=== PATIENT | female | born 1995 | race Caucasian/White ===

== ENCOUNTER 2018-03-30 21:06 | Emergency (ER) | payer SELFPAY ==
[2018-03-30] MEDS ORDERED: LET GEL TOPICAL 1 EA SYR TP ONE ×2 (21:33→21:37)
[2018-03-30] MEDS ORDERED: SKIN ADHESIVE (DERMABOND) 1 EACH TP ONE (21:33)
--- NOTE | 2018-03-30 22:45 | EDPHY ---
H & P Stated Complaint: Lac to L thumb slicing onions. Time Seen by Provider: 03/30/18 21:11 HPI/ROS: 22-year-old female presents complaining of laceration to her left thumb while slicing onions. Review of systems As per HPI General no fever no chills no weakness HEENT no eye pain no eye discharge. No eye redness, no sore throat Respiratory no cough, no shortness of breath Cardiac no chest pain, no peripheral edema GI no abdominal pain, no diarrhea, no constipation, no nausea, no vomiting no flank pain, no hematuria, no dysuria Musculoskeletal no myalgias, no joint pain Heme no easy bruising, no easy bleeding Endo no polyuria, no polydipsia Skin no rashes, no pruritus Neuro no syncope, no dizziness, no headaches Psych is no suicidal ideation, no homicidal ideation Source: Patient Exam Limitations: No limitations - Personal History LMP (Females 10-55): IUD In Place Current Tetanus/Diphtheria Vaccine: Yes Current Tetanus Diphtheria and Acellular Pertussis (TDAP): Yes Tetanus Vaccine Date: 2017 - Medical/Surgical History Hx Asthma: No Hx Chronic Respiratory Disease: No Hx Diabetes: No Hx Cardiac Disease: No Hx Renal Disease: No Hx Cirrhosis: No Hx Alcoholism: No Hx HIV/AIDS: No Hx Splenectomy or Spleen Trauma: No Other PMH: Headaches, IUD in place. - Family History Significant Family History: No pertinent family hx - Social History Smoking Status: Never smoked Alcohol Use: None Drug Use: None - Physical Exam Exam: 22 yo F alert and oriented in nad non toxic appearance at,nc neck no jvd no resp distress heart rrr ext left hand good cap refill, no swelling, no redness, no ecchymoses, FROM left thumb with 1 cm laceration volar surface at PIP non gaping, no FB, from Constitutional: Initial Vital Signs Temperature (C) 36.6 C 03/30/18 21:13 Heart Rate 76 03/30/18 21:13 Respiratory Rate 16 03/30/18 21:13 Blood Pressure 131/88 H 03/30/18 21:13 O2 Sat (%) 97 03/30/18 21:13 O2 Delivery Mode Room Air Allergies/Adverse Reactions: No Known Allergies Allergy (Unverified 09/21/15 19:26) Home Medications: Medication Instructions Recorded NK [No Known Home Meds] 03/30/18 Medical Decision Making Procedures: Procedure note-laceration LET applied for 20 minutes. the wound was then cleaned by the tech 1 cm laceration to left thumb, non gaping applied dermabond splinted Patient tolerated procedure well. ED Course/Re-evaluation: Patient seen and evaluated for thumb laceration Adhesive repair Impression Thumb laceration, left Plan DC home Differential Diagnosis: Differential diagnosis considered but not limited to Finger laceration, tendon laceration - Data Points Medications Given: Discontinued Medications Tetracaine/Epinephrine/Lidocaine (Let Gel Topical) 1 ea TP EDNOW ONE Stop: 03/30/18 21:38 Last Admin: 03/30/18 21:38 Dose: 1 ea Departure - Departure Disposition: Home, Routine, Self-Care Clinical Impression: Laceration of left thumb Condition: Good Instructions: Finger Laceration (ED), Skin Adhesive Care (ED) Referrals: Patient,NotPresent [Primary Care Provider] - As per Instructions
[2018-03-30 22:57] VITALS: BP 126/76
== END 2018-03-30 22:55 | disposition home or self-care (01) ==
LOC: CED 21:06
PROC: 0HQGXZZ Repair Left Hand Skin, External Approach (ICD-10-PCS; principal; 2018-03-30)
DX: S61.012A Laceration without foreign body of left thumb without damage to nail, initial encounter (principal); W26.0XXA Contact with knife, initial encounter; Y92.9 Unspecified place or not applicable; Y93.G1 Activity, food preparation and clean up; Y99.9 Unspecified external cause status